=== PATIENT | female | born 1990 | race Caucasian/White ===

== ENCOUNTER 2017-05-09 10:31 | Emergency (ER) | payer SELFPAY ==
[~2017-05-09] VITALS: Ht 149.9 cm; Wt 75.0 kg
[~2017-05-09 10:31] MED LIST: CHLO.12%30 SSP; HYDR-3533 PO; PENI250T59 PO
[2017-05-09 10:33] VITALS: BP 124/80; PULSE 80; RESP 24; TEMP 98.2; O2SAT 99
[2017-05-09] MEDS ORDERED: PROPARACAINE HCL 0.5% OPHT SOLN 15 ML BTL RIGHT EYE ONE (11:00)
[2017-05-09] MEDS ORDERED: AZIT500T2 PO (11:18)
[2017-05-09] MEDS ORDERED: IBUP800T23 PO (11:18)
[2017-05-09] MEDS ORDERED: ERYTOIN10 RIGHT EYE ×2 (11:18→11:25)
--- NOTE | 2017-05-09 11:20 | PD ---
HPI Chief Complaint: Eye Problems/Injury Time Seen by Provider: 10:56 Travel History International Travel<30 days: No Contact w/Intl Traveler<30days: No Traveled to known affect area: No History of Present Illness HPI 26-year-old female presents emergency Department with complaint of a scratch to her right eye from her kitten this morning. She feels like she has a sunburn in her eye. Reports clear drainage. Reports blurry vision, otherwise denies change in vision. Denies fever, vomiting. Has tried flushing her eye out. Has not taken any medications to alleviate her symptoms. Symptoms are mild in severity. Has no other medical complaints. Tetanus up-to-date. No known allergies. No other modifying factors or associated signs and symptoms. PFSH Past Medical History Asthma: Yes Anxiety: Yes Diminished Hearing: No Reproductive: Yes (ENDOMETRIOSIS) Respiratory: Yes (ASTHMA, USES INHAILER) Pneumonia: Yes ?: Not LMP: 04/19/17 : 0 Social History Alcohol Use: Yes ("VERY SELDOM") Tobacco Use: No Substance Use: Yes (MARIJUANA) Allergies-Medications (Allergen,Severity, Reaction): Coded Allergies: No Known Allergies (Verified , 08/19/15) Reported Meds & Prescriptions Reported Meds & Active Scripts Active Erythromycin Opth Oint 5 Mg/Gm Oint 1 Applic RIGHT EYE QID 7 Days Ibuprofen 800 Mg Tab 800 Mg PO Q6HR PRN Azithromycin 500 Mg Tab 500 Mg PO DAILY Peridex Oral Rinse (Chlorhexidine Gluconate) 0.12 % Gauri 15 Ml SSP Q6HR Penicillin Vk (Penicillin V Potassium) 250 Mg Tab 500 Mg PO Q12HR 10 Days Lortab 5 mg/325 mg (Hydrocodone/Acetaminophen 5 mg/325 mg) 1 Tab 1 Tab PO Q6H PRN Review of Systems Except as stated in HPI: all other systems reviewed are Neg Physical Exam Narrative GENERAL: Well-nourished, well-developed female patient, in no acute distress SKIN: Warm and dry. HEAD: Atraumatic. Normocephalic. EYES: Pupils equal and round at 3 mm with brisk reaction. PERRLA. EOMI. right lid eversion with no foreign body noted. Right eye without minimal scleral erythema and without lid edema. No orbital tenderness, erythema or cellulitis. Right eye without photophobia. No consensual photophobia. No scleral icterus. Clear drainage. Benito lamp exam reveals corneal abrasion over the pupil the extends from the 2 o'clock position to the 7 o'clock position across the pupil. ENT: Mucosa pink and moist. Airway patent. NECK: Trachea midline. CARDIOVASCULAR: Regular rate. RESPIRATORY: No accessory muscle use. GASTROINTESTINAL: Flat. NEUROLOGICAL: Awake and alert. Oriented 3. No obvious cranial nerve deficits. Motor grossly within normal limits. Normal speech. PSYCHIATRIC: Appropriate mood and affect; insight and judgment normal. Data Data Last Documented VS Vital Signs Date Time Temp Pulse Resp B/P (MAP) Pulse Ox O2 Delivery O2 Flow Rate FiO2 05/09/17 10:33 98.2 80 24 124/80 (95) 99 Room Air Orders Orders Proparacaine 0.5% Opth Soln (Alcaine 0.5 (05/09/17 11:00) MDM Medical Decision Making Medical Screen Exam Complete: Yes Emergency Medical Condition: Yes Medical Record Reviewed: Yes Differential Diagnosis Corneal abrasion, corneal ulceration, foreign body Narrative Course 26 rolled female physical exam consistent with right eye corneal abrasion. Caused by a cat scratch. Patient is up-to-date on tetanus. Erythromycin, azithromycin, ibuprofen prescribed for home. Mandatory outpatient referral ordered for patient follow-up. Instructed patient to follow up with ophthalmology. Instructed patient to follow up with primary care provider. Patient verbalizes understanding and agreement with treatment plan. Patient is medically cleared and stable for discharge. Discussed reasons to return to the emergency department. Patient agrees with treatment plan. The patients vital signs are stable and the patient is stable for outpatient follow-up and treatment. Patient discharged home, stable and in no acute distress. Diagnosis Primary Impression: Corneal abrasion Qualified Codes: S05.01XA - Injury of conjunctiva and corneal abrasion without foreign body, right eye, initial encounter Referrals: [facility] Primary Care Physician Patient Instructions: Cat Scratch Disease (ED), Corneal Abrasion (ED), General Instructions Additional Instructions: Ibuprofen or Tylenol as directed and as needed to reduce pain Do not patch the eye Do not rub the eye Refrigerated eye drops as needed to reduce pain Cool compresses to the eye as needed to reduce pain Follow-up with ophthalmology Primary care provider Return to the emergency department immediately with worsening of symptoms Med/Other Pt SpecificInfo: Prescription(s) given Scripts Erythromycin Opth Oint (Erythromycin Opth Oint) 5 Mg/Gm Oint 1 APPLIC RIGHT EYE QID for Infection for 7 Days, #1 TUBE 0 Refills Prov: Stephanie Angeles 05/09/17 Ibuprofen (Ibuprofen) 800 Mg Tab 800 MG PO Q6HR Y for PAIN, #30 TAB 0 Refills Prov: Stephanie Angeles 05/09/17 Azithromycin (Azithromycin) 500 Mg Tab 500 MG PO DAILY for Infection, #5 TAB 0 Refills Prov: Stephanie Angeles 05/09/17 Disposition: 01 DISCHARGE HOME Condition: Stable Stephanie Angeles May 09, 2017 11:20
== END 2017-05-09 11:40 | disposition home or self-care (01) ==
LOC: NEPD 10:31
DX: S05.01XA Injury of conjunctiva and corneal abrasion without foreign body, right eye, initial encounter (principal); J45.909 Unspecified asthma, uncomplicated; F41.9 Anxiety disorder, unspecified; N80.9 Endometriosis, unspecified; W55.03XA Scratched by cat, initial encounter; Z23 Encounter for immunization
CPT/HCPCS: 99284